=== PATIENT | female | born 1975 | race Caucasian/White ===

== ENCOUNTER → 2017-01-05 | Outpatient (CLI) | payer OTHER ==
[~2017-01-05] MED LIST: ADVIL100 M2 PO; AMBEREN PO; CALCIUM +D & M1 EACH PO; EXCEDRIN SINUS1 EAC2 PO; FISH OIL 1,0001 EAC5 PO; IBUPROFEN 200200 M1; LANOXIN 0.250.25 M1 PO; PONSTEL250 MG PO
== END ==
LOC: RAD 01:08
DX: Z12.31 Encounter for screening mammogram for malignant neoplasm of breast (principal)

== ENCOUNTER → 2017-03-09 | Outpatient (CLI) | payer OTHER ==
[~2017-03-09] VITALS: Ht 165.1 cm; Wt 78.5 kg
[~2017-03-09] MED LIST changes: +CARTIA XT120 M1 PO; +FLEXERIL PO; +IBUPROFEN 200200 M1 PO; +NORCO 5-325 TA1 EACH PO; +PERCOCET 5-3251 EACH PO
--- NOTE | ~2017-03-09 | HPC ---
[facility] [address] [place] [address] PAIN MANAGEMENT CONSULTATION Name: LOAN VILLANUEVA Room #: REG JORDI Jet.#: [id number] Admission: 03/09/17 Attend Phys: Damian Laguna DO Discharge: Date of : 73 Report #: [id number] THIS REPORT FOR: //name// CC: Damian Laguna CANDELARIA CORRIGAN CARMELO Candelaria Corrigan DATE OF SERVICE: 03/09/2017 CHIEF COMPLAINT: Low back pain, left lower extremity pain and paresthesias. HISTORY OF PRESENT ILLNESS: As you know, the patient is a 41-year-old female who has had a 1-month history of low back pain, left lower extremity pain with paresthesias. The patient denies injury or trauma that may have led to symptoms. She indicates pain began without inciting injury or trauma, progressively worsened. She sought evaluation through her PCP who provided the patient with prednisone therapy and pain pills. Unfortunately, this did not improve the patient's symptoms do any great degree. She continues to do active stretching exercises daily and physical therapy that she had been trained in the past for low back pain. She describes the pain as continuous, steady and constant, describes the pain as shooting, sharp and stabbing, places current pain score 5-6/10, daily average of 6-7/10, worst pain has been is 9/10. The patient states that rotation of the lumbar spine as well as forward flexion of the lumbar spine exacerbates symptoms, lying completely flat on her back with her feet in the air tend to improve pain. She has been referred to our clinic with outdated MRI from 2010 for evaluation for lumbar radicular symptoms on the left side. PAST MEDICAL HISTORY: 1. Depression. 2. Hypertension. PAST SURGICAL HISTORY: 1. section x 2. 2. Laparoscopic appendectomy. SOCIAL HISTORY: The patient denies tobacco, alcohol, IV or illicit drug use. She is employed as a social professionals. She is working, not receiving workmen's compensation. She is accompanied by her who is present in room today. REVIEW OF SYSTEMS: Positive for migraine headaches, wearing corrective eyewear, paroxysmal atrial tachycardia. Nocturia, painful menses, depression, low back pain, left lower extremity pain with paresthesias. All other review of systems negative per 12-point review of systems other than those listed in history of present illness. Pain impact score 42/70. [address] [address] PAIN MANAGEMENT CONSULTATION Name: LOAN VILLANUEVA YUNG Room #: REG JORDI Jackson#: [id number] Admission: 03/09/17 Attend Phys: Damian Laguna DO Discharge: Date of : 73 Report #: [id number] ALLERGIES: No known drug allergies. CURRENT MEDICATIONS: Cartia 120 mg once a day, multivitamin 1 tab per day, omega-3 fish oil 1 tab per day, Advil p.r.n., Excedrin Migraine p.r.n., hydrocodone/acetaminophen 1 tab every 8 hours p.r.n. for pain. IMAGING: No appropriate imaging available. PQRS: The patient reports no history of osteoarthritis, no rheumatoid arthritis. She does not have any risk for falls. She has not fallen in the last 3 months. She does not use any device for ambulation. The patient does not take any blood thinners. She is diagnosed with hypertension. She is taking medication for this therapy. Risk assessment tool for opioid abuse is low. Functional assessment 42/70. PHYSICAL EXAMINATION: VITAL SIGNS: Blood pressure 120/90, pulse 87, respiratory rate 16 and unlabored. The patient is 99% on room air. Weight 78 kilograms. GENERAL: Well-developed, well-nourished, well-hydrated, 41-year-old female. She appears stated age, placing current pain score 5-6/10. HEENT: Normocephalic, atraumatic. Pupils equal, round, reactive to light. Extraocular muscles are intact. Sclerae nonicteric without injection. NEUROLOGIC: Cranial nerves 2-12 grossly intact. Speech is fluent. The patient deemed an excellent historian. LUNGS: Clear. No wheeze, rhonchi or rales. CARDIOVASCULAR: Regular. No appreciable gallop or rub. ABDOMEN: Soft, nontender, nondistended, normoactive bowel sounds. EXTREMITIES: Show no clubbing, no cyanosis, no edema. MUSCULOSKELETAL: Lower extremity strength equal and symmetrical 5/5. There is some giveaway strength noted on the left when compared to the right. This is done with hip flexion due to pain generation. Seated straight leg raising negative. Supine straight leg raising positive on the left. BRAYAN test negative. Modified Gaenslen's positive for axial back pain. Ankle clonus negative. Babinski is negative. Gait appears to be mildly antalgic favoring left lower extremity over right. Deep tendon reflexes are symmetrical at patella and Achilles bilaterally. ASSESSMENT: 1. Lumbar radiculopathy. 2. Lumbosacral spondylosis with radiculopathy. PLAN: 1. The patient has been referred to our clinic by her primary care team for evaluation for suspected lumbar radiculopathy. The patient's distribution of symptoms appears to be an L5 radiculopathy on the left side. She comes to us today with imaging study from 2010, which provides us no valuable information in [place] [id number] PAIN MANAGEMENT CONSULTATION Name: LOAN VILLANUEVA Room #: [facility] [id number] Admission: 03/09/17 Attend Phys: Damian Laguna DO Discharge: Date of : 73 Report #: [id number] regards to the potential pathology in the lumbar region. I did question the patient about imaging. The patient indicates that she was advised she would not need a new imaging for treatment. I do feel that further evaluation with imaging will be necessary if she is not responsive to conservative treatment. We would recommend if the patient does not see a significant improvement with proposed injection therapies, that she undergo MRI of the lumbar spine, we will defer to the primary team to obtain this imaging study. 2. The patient and I discussed treatment options for what appears to be lumbar radicular symptoms. Unfortunately, I am unable to determine the specific source of the symptomology, but her distribution appears to be L5 left-sided dermatomal distribution. We discussed the options of treatment, which would include physical therapy, stretching exercises in a formalized program. We discussed medication management with neuropathic pain medications and a consistent nonsteroidal anti-inflammatory. We discussed epidural injections under fluoroscopic guidance, spinal cord stimulator therapy and surgical options. After reviewing the risks and benefits of all the proposed treatment options, the patient requested an epidural injection under fluoroscopic guidance. The patient was advised that third libertarian payer restrictions require the authorization be obtained before we could have the patient undergo an epidural injection. Authorization will take somewhere between 4-7 working days, begin the process immediately, contact the patient once it has been completed for her to return to undergo this requested epidural. 3. No medication changes were made at today's visit. The patient will continue current medical therapy as previously prescribed. The patient indicates her primary care physician has provided her with opioid medication for pain control. She can take this as directed. 4. The patient will undergo x-ray imaging of the lumbar spine, AP and lateral imaging will be obtained. We wish to have the imaging completed today. We will review the findings once it is available and can report the findings at the patient's followup visit in hopefully 1 week. 5. We will have the patient return once authorization has been obtained to undergo epidural injection under fluoroscopic guidance. We will keep you apprised of response to this treatment. We wish to thank you for the opportunity to see the patient in consultation. We will keep you apprised of her response to the requested epidural injection and whether or not further imaging will be necessary. Again, we wish to thank you for the opportunity to participate in her care. <ELECTRONICALLY SIGNED> By: Damian Laguna DO 03/16/17 1130 1026 [id number] Damian Laguna DO /nt
[2017-03-09 09:54] VITALS: BP 132/82
== END ==
LOC: PAIN 06:43
DX: M47.27 Other spondylosis with radiculopathy, lumbosacral region (principal); F32.9 Major depressive disorder, single episode, unspecified; I10 Essential (primary) hypertension; Z90.49 Acquired absence of other specified parts of digestive tract

== ENCOUNTER → 2017-03-16 | Outpatient (CLI) | payer OTHER ==
[~2017-03-16] VITALS: Ht 165.1 cm; Wt 77.2 kg
--- NOTE | ~2017-03-16 | HPC ---
[facility] [place] [address] PAIN MANAGEMENT CONSULTATION Name: LOAN VILLANUEVA Room #: REG SANAMikael Chaudhary.#: [id number] Admission: 03/16/17 Attend Phys: Damian Laguna DO Discharge: Date of : 73 Report #: [id number] THIS REPORT FOR: //name// CC: Damian OCAMPO DATE OF SERVICE: 03/16/2017 REFERRING PHYSICIAN: TERRENCE Coon CHIEF COMPLAINT: Low back pain, left lower extremity pain and paresthesias. HISTORY OF PRESENT ILLNESS: As you know, the patient is a 41-year-old female who was referred to our service with a 1 month history of low back pain, left lower extremity pain and paresthesias. She denied injury or trauma that may have led to symptoms. She came to our clinic with an MRI from 2010, which showed only a focal left disk protrusion at the L5-S1 level with mass effect upon the left S1 nerve root. No new imaging had been completed. We sent the patient for x-ray imaging, she returns today with normal x-ray findings, no vertebral height changes, no fracture or subluxations, disk spaces were well preserved. She is indicating today pain level of 8/10, states her pain is sharp, shooting, numbness, tingling and stabbing in sensation, exacerbated with bending and twisting. She returns today requesting epidural injection under fluoroscopic guidance that we have received precertification to undergo. ALLERGIES: IV CONTRAST AGENT. CURRENT MEDICATIONS: Ibuprofen 200 mg every 8 hours, hydrocodone 5/325 one tab every 6 hours, diltiazem XT 120 mg once a day, Excedrin sinus once a day, calcium carbonate 1 tab per day, omega-3 fish oil 1 tab per day, and multivitamin 1 tab per day. SOCIAL HISTORY: The patient denies tobacco, alcohol, IV or illicit drug use. She is employed as a social media content specialist. She is working, not receiving workmen's compensation, accompanied by her who is present in room today. IMAGING: X-ray lumbar spine obtained on 03/09/2017, shows a completely normal lumbar spine imaging. PHYSICAL EXAMINATION: VITAL SIGNS: Blood pressure 135/86, pulse is 80, respiratory rate 16 and unlabored, the patient is 100% on room air, height 5 feet 5 inches tall, weight 170 pounds, and BMI calculated 28.3. GENERAL: Well-developed, well-nourished, well-hydrated 41-year-old female, in moderate distress secondary to pain, placing current pain score at 8/10. [place] [address] PAIN MANAGEMENT CONSULTATION Name: LOAN VILLANUEVA YUNG Room #: REG CL Jet.#: [id number] Admission: 03/16/17 Attend Phys: Damian Laguna DO Discharge: Date of : 73 Report #: [id number] HEENT: Normocephalic, atraumatic. Pupils are equal, round, and reactive to light. Extraocular muscles are intact. EXTREMITIES: Show no clubbing, no cyanosis, and no edema. MUSCULOSKELETAL: Lower extremity strength is symmetrical 5/5, intact to light touch from L1 through S2 dermatomes. Supine straight leg raising positive on the left. ASSESSMENT: 1. Lumbar radiculopathy. 2. Chronic low back pain. 3. Chronic intractable pain. PLAN: 1. The patient returns today in followup visit where we have reviewed the x-ray imaging, which shows completely normal lumbar spine, there is no disk space narrowing, no arthritic changes, no subluxation and no noted pathology. I have discussed this with the patient today. I am pleased to advise the patient at this time it does not appear that surgical options are necessary from the bony abnormalities. I did discuss the fact that if her pain does not improve, MRI would be necessary for further evaluation, I recommend the patient undergo the MRI approximately 2 weeks from today as MRI will show changes within the lumbar region with an epidural injection. The patient is understanding and we will change her MRI date. 2. The patient was advised risks and benefits of a lumbar epidural injection. These risks include, but are not necessarily limited to bleeding, bruising, infection, worsening of pain, no relief of pain, also risk of temporary or permanent muscle weakness, temporary or permanent nerve damage, possible paralysis and . The patient states understood and wished to proceed. 3. The patient has been inappropriately advised that we would be taking over opioid medication simply because she has been seen at the pain clinic. We have evaluated the patient's case and determined that epidural injections would be an appropriate treatment option, but did not feel that opioid medications are necessary and viable treatment option. We chose not to initiate therapy in this area, this was done prior to the patient visiting our clinic. The patient indicates that her primary care team has advised her that we are now mandated to take over these medications, this is simply not the case. I advised the patient at this time we would be willing to provide a 1 month prescription of hydrocodone 5/325 one tab p.o. q.6 hours p.r.n. for pain, #120, this will provide the patient a chance to return to her PCP who initiated the therapy and determine if they want to provide weaning parameters or continue the patient on this medication as we did not initiate the therapy and do not feel it is necessary in this case. The patient was provided the prescription, but advised no further treatment with opioids will be provided through our clinic as this has not been shown to be an effective long-term treatment option by the CDC nor CORRINE. 4. We will see the patient back in followup visit in 1 month, at that time we [address] [address] PAIN MANAGEMENT CONSULTATION Name: LOAN VILLANUEVA Room #: REG JORDI Jackson#: [id number] Admission: 03/16/17 Attend Phys: Damian Laguna DO Discharge: Date of : 73 Report #: [id number] will review the efficacy of the epidural injection provided today. At that time, we will also review the patient's MRI and determine if surgical options would be necessary or continuation of epidural injection therapies. PROCEDURE NOTE DESCRIPTION OF PROCEDURE: L5-S1 left paramedian epidural steroid injection under fluoroscopic guidance. After obtaining written consent, the patient was taken back to fluoroscopy suite, placed in prone position with pillow under abdomen to decrease lumbar lordosis. Skin overlying lumbosacral area then prepped and draped in aseptic fashion. Lumbar intervertebral spaces identified by AP fluoroscopy. Skin and subcutaneous tissue overlying target site of injection was anesthetized with 3 mL of 1% lidocaine. A 20-gauge 3-1/2-inch Tuohy needle advanced under fluoroscopic guidance towards the epidural space using left paramedian approach. The epidural space was identified using loss of resistance to air technique. Due to a suspected contrast allergy, no contrast agent was used in today's procedure. The patient's positioning of needle was confirmed with AP and lateral fluoroscopy. After confirmation of positioning and aspiration noted to be negative for heme or cerebrospinal fluid, 5 mL of a solution containing 2 mL 40 mg per mL, 80 mg total triamcinolone, 3 mL lidocaine 1% injected slowly. Needle retracted half-way, flushed with 1 mL of 1% lidocaine and removed. Sterile bandage placed over injection site. No new motor deficits present in the lower extremity following the procedure. The patient tolerated the procedure well, carefully escorted to the recovery room in stable condition. No apparent complications. After meeting discharge criteria, the patient discharged home. <ELECTRONICALLY SIGNED> By: Damian Laguna DO 03/16/17 1131 1027 1107 Damian Laguna DO /nt
[2017-03-16 08:36] VITALS: BP 135/86
== END ==
LOC: PAIN 07:02
DX: M54.16 Radiculopathy, lumbar region (principal); G89.29 Other chronic pain; Z88.8 Allergy status to other drugs, medicaments and biological substances

== ENCOUNTER 2017-03-22 12:39 | Emergency (ER) | payer OTHER ==
[~2017-03-22] VITALS: Ht 162.6 cm; Wt 77.1 kg
[~2017-03-22 12:39] MED LIST changes: -FLEXERIL PO; -PERCOCET 5-3251 EACH PO
[2017-03-22] MEDS ORDERED: FLEXERIL PO (14:47)
[2017-03-22] MEDS ORDERED: PERCOCET 5-3251 EACH PO (14:47)
[2017-03-22 15:03] VITALS: BP 111/60
== END 2017-03-22 15:17 | disposition home or self-care (01) ==
LOC: ER 12:39
DX: M54.5 Low back pain (principal); Z91.041 Radiographic dye allergy status

== ENCOUNTER → 2017-03-23 | Outpatient (CLI) | payer OTHER ==
[~2017-03-23] VITALS: Ht 165.1 cm; Wt 75.7 kg
[~2017-03-23] MED LIST changes: +FLEXERIL PO; +PERCOCET 5-3251 EACH PO
--- NOTE | ~2017-03-23 | HPC ---
[facility] [place] [address] PAIN MANAGEMENT CONSULTATION Name: LOAN VILLANUEVA Room #: REG SNAAMikael Chaudhary.#: [id number] Admission: 03/23/17 Attend Phys: Damian Laguna DO Discharge: Date of : 73 Report #: [id number] THIS REPORT FOR: //name// CC: Damian OCAMPO DATE OF SERVICE: 03/23/2017 REFERRING PHYSICIAN: TERRENCE Coon CHIEF COMPLAINT: Low back pain, lower extremity pain with paresthesias. HISTORY OF PRESENT ILLNESS: As you know, the patient is a 41-year-old female referred to our service with 1 month history of low back pain, lower extremity pain with paresthesias involving mainly the left side. She denied injury or trauma at that time. She came to our clinic with an MRI from 2010, which did show only a focal left disk protrusion at the L5-S1 level with some mass effect upon the left S1 nerve root. No imaging had been obtained. The patient underwent epidural injection at that visit to address lumbar radicular symptoms. The patient reports this exacerbated her symptoms, she was seen in the emergency department at [facility] on 03/22/2017, advised to return to our clinic today 03/23/2017. The patient states she cannot walk or get up in the morning, she cannot sit, she is placing pain score 10/10. She indicates pain is shooting, sharp, stabbing, numbness, and tingling, exacerbated with bending, walking, any type of activity, nothing tends to alleviates the pain except for the Percocet she received at the ER. She returns to discuss options for treatment given the fact the epidural potentially exacerbated her symptoms. ALLERGIES: IV CONTRAST AGENT. CURRENT MEDICATIONS: Ibuprofen 200 mg q.8 hours, Percocet 5/325 one tab every 4 hours p.r.n. for pain, calcium carbonate 1 tab per day, omega-3 fish oil 1 tab per day, and multivitamin 1 tab per day. SOCIAL HISTORY: The patient denies tobacco, alcohol, IV or illicit drug use. She is employed as a psych social worker. She is accompanied by her who is present in room today. IMAGING: No new imaging available. PQRS: The patient has no history of osteoarthritis or rheumatoid arthritis. Her pain intensity is anywhere between 9-10/10. Fall risk is no, she has not fallen in the past 3 months. She is not using a device for ambulation. History of hypertension, no. Opioid contract, no. Functional assessment tool indicates [address] [address] PAIN MANAGEMENT CONSULTATION Name: LOAN VILLANUEVA Room #: REG [facility].R.#: [id number] Admission: 03/23/17 Attend Phys: Damian Laguna DO Discharge: Date of : 73 Report #: [id number] pain impact of 61/70, near complete interference of daily activities secondary to pain. PHYSICAL EXAMINATION: VITAL SIGNS: Blood pressure 132/86, pulse 73, respiratory rate 16 and unlabored, the patient is 100% on room air, height 5 feet 5 inches tall, weight 166.8 pounds, and BMI calculated 27.8. GENERAL: Well-developed, well-nourished, well-hydrated 41-year-old female, in moderate distress, placing current pain score at 10/10. HEENT: Normocephalic, atraumatic. Pupils are equal, round, reactive to light. Extraocular muscles are intact. Sclerae are nonicteric without injection. NEUROLOGIC: Cranial nerves 2-12 are grossly intact. Speech is fluent. The patient deemed a fair historian. LUNGS: Clear. No wheeze, rhonchi or rales. CARDIOVASCULAR: Regular. No appreciable gallop. No rub. ABDOMEN: Soft and nontender. EXTREMITIES: Show no clubbing, no cyanosis, and no edema. MUSCULOSKELETAL: Seated straight leg raising positive on the left. Supine straight leg raising positive on the left. Konstantin's test negative. Modified Gaenslen's positive for axial low back pain. Ankle clonus negative. Babinski is negative. She reports decreased tactile sensation in distal portion of the left lower extremity upon the S1 dermatome. ASSESSMENT: 1. Symptomatic lumbar radiculopathy. 2. Displacement of lumbar intervertebral disk with radiculopathy. 3. Acute on chronic lumbar radicular symptoms. 5. Chronic intractable pain. PLAN: 1. The patient has returned today in followup visit indicating that the epidural injection provided at last visit may have actually exacerbated her symptoms. She states her pain has intensified over the past couple of days, no new injury, no new trauma. Her pain became so intense that as of the , the patient had to report to the emergency department, I have reviewed the emergency department notes, it does indicate the pain the patient was experiencing remains on the left side for the most part radiating from the low back. She was given medication management and advised to follow up with our clinic today. Based on the physical exam today, it does appear that the patient had a change in the lumbar region. We cannot directly correlate this to the injection, though the injection may have caused an increase in pressure at the level of the injection itself causing further nerve irritation. I am concerned that the findings on the 2010 MRI may have progressed and she is now looking at more of central canal compression and a larger disk protrusion. Strongly recommend the patient undergo MRI of the lumbar spine. [facility] [address] [place] [address] PAIN MANAGEMENT CONSULTATION Name: LOAN VILLANUEVA Room #: REG CLMikael Jackson#: [id number] Admission: 03/23/17 Attend Phys: Damian Laguna DO Discharge: Date of : 73 Report #: [id number] The patient does have plan to undergo MRI of the lumbar spine this Tuesday, we have taken the liberty of contacting the third alliance party payer as well as our MRI suite, we are able to push her MRI up in to 3:00 on the . We will review the findings once they are available. The patient will contact our clinic in the morning to review the findings and discuss options for treatment. 2. Given the fact the patient has had no improvement in symptoms with an epidural injection, medications are not improving the patient's symptoms and she is now "nearly completely disabled," this is per the patient, I would recommend that moving forward with possible surgical option. This will be based on the findings of the MRI, but given the lack of improvement with a more conservative treatment such as the epidural injection and the medications initiated prior to our services and during treatment for her recurrent back pain, I would recommend moving forward with surgical option for more definitive treatment. The patient is open to this suggestion. 3. The patient was given samples of Lyrica today, we will start her 75 mg dose starting this afternoon. She will continue the 75 mg twice a day dose, she was given samples to be able to do so. 4. The patient will continue the use of either the Percocet or hydrocodone, she was given increased number of hydrocodone at last visit for improvement in symptoms. This has been ineffective. We are hopeful the Luis will help with some of her symptom at this point as she moves forward for possible surgical option. 5. We will talk to the patient tomorrow about the findings of the MRI, I am concerned about changes at the L5-S1 level. Hopefully, this will be confirmed on MRI and we can then discuss with the patient more definitive treatment options such as surgical. <ELECTRONICALLY SIGNED> By: Damian Laguna DO 03/30/17 0715 0812 1200 Damian Laguna DO /nt
[2017-03-23 10:08] VITALS: BP 132/86
== END ==
LOC: MRI 06:42 → PAIN 06:42
DX: M54.16 Radiculopathy, lumbar region (principal); G89.29 Other chronic pain

== ENCOUNTER → 2017-05-05 | Outpatient (CLI) | payer OTHER | LOC: ULTRA 12:18 | DX: N93.8 Other specified abnormal uterine and vaginal bleeding (principal) ==

== ENCOUNTER → 2018-01-05 | Outpatient (CLI) | payer BC, OTHER | LOC: RAD 01:02 | DX: Z12.31 Encounter for screening mammogram for malignant neoplasm of breast (principal) ==

== ENCOUNTER → 2018-01-23 | Outpatient (CLI) | payer BC, OTHER | LOC: ULTRA 01:16 | DX: N63.10 Unspecified lump in the right breast, unspecified quadrant (principal); N63.20 Unspecified lump in the left breast, unspecified quadrant; R92.2 Inconclusive mammogram ==

== ENCOUNTER → 2019-01-08 | Outpatient (CLI) | payer BC, OTHER | LOC: RAD 07:59 | DX: Z12.31 Encounter for screening mammogram for malignant neoplasm of breast (principal) ==

== ENCOUNTER → 2020-01-29 | Outpatient (CLI) | payer BC, OTHER | LOC: BC 07:49 | PROVIDERS: ATTEND Nurse Practitioner | DX: Z12.31 Encounter for screening mammogram for malignant neoplasm of breast (principal) ==

== ENCOUNTER → 2021-01-27 | Outpatient (CLI) | payer BC, OTHER | LOC: BC 08:24 | PROVIDERS: ATTEND Nurse Practitioner | DX: Z12.31 Encounter for screening mammogram for malignant neoplasm of breast (principal); N64.89 Other specified disorders of breast ==